=== PATIENT | female | born 1995 | race Caucasian/White ===

== ENCOUNTER 2017-04-04 07:58 | Emergency (ER) | payer OTHER ==
[~2017-04-04] VITALS: Ht 152.4 cm; Wt 45.4 kg
[2017-04-04] MEDS ORDERED: ALBUTEROL 90 MCG/ACT 8GM HFA INHALER INH ONE (09:45)
[2017-04-04] MEDS ORDERED: ACETAMINOPHEN TAB 650MG DOSE (2X325MG) PO ONE (10:00)
--- NOTE | 2017-04-04 11:17 | REP ---
Clinical: Cough . Comparison: None . Technique: PA and lateral. Findings: The mediastinum and cardiac silhouette are normal. The lung larry are clear and without acute consolidation, effusion, or pneumothorax. The skeletal structures are intact and normal. Impression: 1. No acute cardiopulmonary process. Signed by Cachorro Cordoba MD 04/04/2017 11:09 A
[2017-04-04 11:35] VITALS: BP 100/67
== END 2017-04-04 11:38 | disposition home or self-care (01) ==
LOC: M ED 08:16
DX: J20.9 Acute bronchitis, unspecified (principal); R07.0 Pain in throat; F17.200 Nicotine dependence, unspecified, uncomplicated; Z88.1 Allergy status to other antibiotic agents; Z91.010 Allergy to peanuts

== ENCOUNTER 2017-04-04 22:36 | Emergency (ER) | payer OTHER ==
[~2017-04-04] VITALS: Ht 152.4 cm; Wt 45.4 kg
[2017-04-04 22:36] VITALS: BP 134/90
== END 2017-04-05 06:17 | disposition left against medical advice (07) ==
LOC: M ED 04-05 00:25
DX: Z53.29 Procedure and treatment not carried out because of patient's decision for other reasons (principal)

== ENCOUNTER 2017-05-15 13:53 | Emergency (ER) | payer OTHER ==
[~2017-05-15] VITALS: Ht 152.4 cm; Wt 47.1 kg
[2017-05-15 13:54] VITALS: BP 115/67
[2017-05-15] MEDS ORDERED: PREN1CAP8 PO (14:02)
--- NOTE | 2017-05-16 12:11 | REP ---
FIRST TRIMESTER OB AND ENDOVAGINAL PROBE OB ULTRASOUND: 05/15/2017. Clinical history: Trauma, patient fell onto her left side. Findings: No prior study. Transabdominal and endovaginal probes were utilized. Bladder only minimally filled. Uterus anteverted and measuring 7.4 x 3.7 x 4.5 cm. On EV probe, there is a gestational sac in the fundus of the uterus. The yolk sac is seen. There is also what appears to be a pole 2.1 mm which corresponds to 5 weeks 5 days, which would give an EDC of 01/10/2017. No motion in that pole nor heart activity identified. There is no evidence of a subchorionic bleed. The right ovary is 2.9 x 2.9 x 2.1 cm and left ovary is 3.7 x 2.7 x 2.2 cm. Both ovaries show Doppler and color flow with resistive index 0.65 on the right and 0.52 on the left. Impression: 1. Gestational sac in the fundus with yolk sac and a small pole at 2.1 mm corresponding to 5 weeks 5 days. No subchorionic bleed. No adnexal mass or free fluid. No torsion. No motion or heart activity detected even with EV probe, however this still may represent early normal intrauterine . Missed is the other diagnostic consideration. A concurrent ectopic cannot be totally excluded but is unlikely. Followup with beta HCG and ultrasound at clinically appropriate interval. Signed by Ruben Richards MD 05/16/2017 09:30 A
== END 2017-05-15 15:28 | disposition home or self-care (01) ==
LOC: M ED 15:02
DX: O9A.211 Injury, poisoning and certain other consequences of external causes complicating pregnancy, first trimester (principal); S20.212A Contusion of left front wall of thorax, initial encounter; S70.02XA Contusion of left hip, initial encounter; W01.0XXA Fall on same level from slipping, tripping and stumbling without subsequent striking against object, initial encounter; Y92.89 Other specified places as the place of occurrence of the external cause; Y93.89 Activity, other specified; Y99.8 Other external cause status; Z3A.01 Less than 8 weeks gestation of pregnancy; Z87.891 Personal history of nicotine dependence; Z88.1 Allergy status to other antibiotic agents; Z91.010 Allergy to peanuts

== ENCOUNTER 2017-07-25 19:04 | Emergency (ER) | payer OTHER ==
[~2017-07-25] VITALS: Ht 152.4 cm; Wt 49.0 kg
[~2017-07-25 19:04] MED LIST: PREN1CAP8 PO
[2017-07-25 21:22] VITALS: BP 98/65
== END 2017-07-25 21:23 | disposition home or self-care (01) ==
LOC: M ED 19:04
DX: O26.892 Other specified pregnancy related conditions, second trimester (principal); M54.9 Dorsalgia, unspecified; Z3A.16 16 weeks gestation of pregnancy; O99.342 Other mental disorders complicating pregnancy, second trimester; F41.9 Anxiety disorder, unspecified; Z91.010 Allergy to peanuts; Z88.1 Allergy status to other antibiotic agents